=== PATIENT | female | born 1995 | race Caucasian/White ===

== ENCOUNTER 2018-02-27 13:27 | Emergency (ER) | payer OTHER ==
[2018-02-27 13:55] VITALS: BP 136/85
--- NOTE | 2018-02-27 14:23 | ED ---
Neurological HPI - HPI Summary HPI Summary: 23 yr old with complaint of intermittent left leg numbness the past couple of days. The patient states that she bent over and felt some pain in low back a couple days ago, went to the [facility] and was told she had knee sprain. She disagrees, and does not feel she has a sprain knee though she has been wearing her knee immobilizer [facility] gave her. She describes glove/stocking type numbness from tip of toes to the upper thigh that comes and goes the past couple of days. She has had left facial numbness in the past. She has been diagnosed with Lyme Disease in the last year. She denies change in vision, speech, hearing swallowing, denies focal weakness. No bowel or bladder incontinence. - History of Current Complaint Chief Complaint: UCLowerExtremity Stated Complaint: LOWER BACK/LEFT LEG PAIN Time Seen by Provider: 02/27/18 14:04 Hx Last Menstrual Period: 02/01/18 Pain Intensity: 5 - Allergy/Home Medications Allergies/Adverse Reactions: Allergies Allergy/AdvReac Type Severity Reaction Status Date / Time ciprofloxacin [From Cipro] Allergy Intermediate Hives Verified 02/27/18 13:55 morphine AdvReac Intermediate Increases Verified 02/27/18 13:55 B/P Home Medications: Home Medications NK [No Home Medications Reported] 02/27/18 [History Confirmed 02/27/18] PMH/Surg Hx/FS Hx/Imm Hx - Surgical History Surgery Procedure, Year, and Place: 2 c-sections, laproscopic surgery for endometriosis Infectious Disease History: No Infectious Disease History: Denies: Traveled Outside the [place] in Last 30 Days - Social History Alcohol Use: None Substance Use Type: Reports: None Smoking Status (MU): Light Every Day Tobacco Smoker Review of Systems Positive: Other - back pain Positive: Numbness All Other Systems Reviewed And Are Negative: Yes Physical Exam Triage Information Reviewed: Yes Vital Signs On Initial Exam: Initial Vitals Temp Pulse Resp BP Pulse Ox 99.0 F 100 18 136/85 100 02/27/18 13:47 02/27/18 13:47 02/27/18 13:47 02/27/18 13:47 02/27/18 13:47 Vital Signs Reviewed: Yes Appearance: Positive: Well-Appearing, No Pain Distress Skin: Positive: Warm, Skin Color Reflects Adequate Perfusion Eyes: Positive: EOMI Neck: Positive: Nontender Respiratory/Lung Sounds: Positive: Clear to Auscultation, Breath Sounds Present Cardiovascular: Positive: RRR. Negative: Murmur Abdomen Description: Positive: Nontender Musculoskeletal: Positive: Strength/ROM Intact, Other - No CTLS spine tenderness on palpation Neurological: Positive: Sensory/Motor Intact - she reports numbness of the entire left leg., Alert, Oriented to Person Place, Time, CN Intact II-III Psychiatric: Positive: Normal - Jocelin Coma Scale Best Eye Response: 4 - Spontaneous Best Motor Response: 6 - Obeys Commands Best Verbal Response: 5 - Oriented Coma Scale Total: 15 Diagnostics - Vital Signs Vital Signs Temp Pulse Resp BP Pulse Ox 02/27/18 13:47 99.0 F 100 18 136/85 100 - Laboratory Lab Statement: Any lab studies that have been ordered have been reviewed, and results considered in the medical decision making process. 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 She refused transfer to the ER by ambulance and signed out AMA. - Diagnoses Provider Diagnoses: Numbness in left leg Discharge - Sign-Out/Discharge Documenting (check all that apply): Discharge/Admit/Transfer - Discharge Plan Condition: Good Disposition: AGAINST MEDICAL ADVICE Referrals: Latosha GONSALES,Jorge Dominguez [Primary Care Provider] - - Billing Disposition and Condition Condition: GOOD Disposition: AMA
== END 2018-02-27 14:25 | disposition left against medical advice (07) ==
LOC: UCCORT 13:27
DX: R20.0 Anesthesia of skin (principal); Z88.1 Allergy status to other antibiotic agents; Z88.5 Allergy status to narcotic agent; F17.210 Nicotine dependence, cigarettes, uncomplicated
CPT/HCPCS: 99212; G0463

== ENCOUNTER 2019-02-01 19:43 | Emergency (ER) | payer MEDICAID, OTHER ==
--- OUTSIDE RECORDS SUMMARY | 2019-02-01 19:59 | XMS REPORT | Continuity of Care Document ---
:1995 External Reference #:[id number] Author Name Michelle Hernandez M.D. Address [address] [place] [address] Care Team Providers Name Role Phone Hardy Vega MD Care Team Information [place] Machine Operator Unavailable Jorge Reina PA Primary Care Physician Unavailable Payers Date Identification Numbers Payment Provider Subscriber Policy Number: [id number] [employer] Rosa Renee PayID: [id number] [address] [place] [address] Advance Directives Description No Information Available Problems Date Description Provider Status Onset: 01/06/2019 Retention of urine Michelle Hernandez M.D. Active Onset: 01/06/2019 Cystitis Michelle Hernandez M.D. 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 Tobacco Use Start: Unknown End: Quit Unknown Tobacco Use Start: Unknown Never Smoked Cigars Tobacco Use Start: Unknown Never Smoked A Pipe Smokeless Tobacco Never Used Smokeless Tobacco ETOH Use Denies alcohol use Recreational Drug Use Denies Drug Use Tobacco Use Start: Unknown Light tobacco smoker (10 or fewer cigarettes/day) Smoking Status Reviewed: 01/14/19 Light tobacco smoker (10 or fewer cigarettes/day) Allergies, Adverse Reactions, Alerts Date Description Reaction Status Severity Comments 03/20/2018 Morphine Active 03/20/2018 Cipro Active Medications Medication Date Status Form Strength Qnty SIG Indications Ordering Provider Tamsulosin 01/27 Active Capsules 0.4mg 21cap 1 by mouth every Mary, s day Dagmar Martinez Pyridium 01/09 Active Tablets 200mg 30tab by mouth three Mary, s times a day as Michelle, needed M.Eva Elmiron 01/06 Active Capsules 100mg 120ca 1 tab by mouth Mary ps three times a Gabrielamoud, day M.DPaola Uribel 11/24 Active Capsules 118mg 20cap 1 tab by mouth Mary, s up to four times Mahmoud, a day M.DPaola Mapap Active Tablets 500mg Take Two Tablets Unknown /0000 By Mouth Every 8 Hours While Symptoms Last Maximum Da Effexor XR Active Caps ER 150mg 1 by mouth every Unknown /0000 24HR day Gabapentin Active Tablets 600mg take one tablet Unknown /0000 by mouth three times a day Depo-Car Sales Consultant Active Suspension 150mg/ml inject 150mg Unknown a /0000 intramuscularly every 3 months Sulfamethox 01/06 Hx Tablets 800-160mg 1tabs 1 by mouth once Mary, azole/Trim given in office tj Martinez DS - for procedure Dagmar 01/07 Gabapentin Hx Capsules 400mg Take One Capsule Unknown /0000 By Mouth Three - Times A Day 11/24 Naproxen Hx Tablets 500mg Take 1 Tablet By Unknown /0000 Mouth Twice A - Day as Needed 11/24 Okay To Take With Acetami Duloxetine Hx Caps DR 30mg Take One Capsule Unknown HCL /0000 Part By Mouth Every - Day In The 11/24 Prednisone Hx Tablets 50mg Take One Tablet Unknown /0000 By Mouth Every - Day For 5 Days 03/20 Immunizations Description No Information Available Vital Signs Date Vital Result Comment 01/26/2019 10:53am BP Systolic 133 mmHg BP Diastolic 79 mmHg Body Temperature 98.7 F Heart Rate 99 /min Respiratory Rate 16 /min Height 62 inches 5'2" Weight 178.12 lb BMI (Body Mass Index) 32.6 kg/m2 BSA (Body Surface Area) 1.82 m2 [place] body weight in kilograms 50 kg O2 % BldC Oximetry 99 % Ra Pain Level 4 bladder area, back 01/08/2019 10:23am BP Systolic 115 mmHg BP Diastolic 73 mmHg Body Temperature 99.0 F Heart Rate 89 /min Respiratory Rate 18 /min Height 62 inches 5'2" Weight 178.00 lb BMI (Body Mass Index) 32.6 kg/m2 BSA (Body Surface Area) 1.82 m2 [place] body weight in kilograms 50 kg O2 % BldC Oximetry 98 % 01/06/2019 10:54am BP Systolic 125 mmHg BP Diastolic 82 mmHg Body Temperature 99.2 F Heart Rate 95 /min Respiratory Rate 16 /min O2 % BldC Oximetry 98 % Pain Level 5 Pain on urination 11/24/2018 1:46pm BP Systolic 103 mmHg BP Diastolic 72 mmHg Body Temperature 98.3 F Heart Rate 80 /min Respiratory Rate 16 /min O2 % BldC Oximetry 98 % Pain Level 8 only when urinating 04/25/2018 11:03am BP Systolic 104 mmHg BP Diastolic 71 mmHg Body Temperature 97.5 F Heart Rate 93 /min Respiratory Rate 16 /min Height 63.5 inches 5'3.50" Weight 186.00 lb BMI (Body Mass Index) 32.4 kg/m2 BSA (Body Surface Area) 1.89 m2 [place] body weight in kilograms 53 kg O2 % BldC Oximetry 96 % room air Pain Level 7 03/20/2018 1:40pm BP Systolic 106 mmHg BP Diastolic 73 mmHg Body Temperature 98.8 F Respiratory Rate 98 /min Height 62 inches 5'2" Weight 178.00 lb BMI (Body Mass Index) 32.6 kg/m2 BSA (Body Surface Area) 1.82 m2 [place] body weight in kilograms 50 kg Results Test Date Facility Test Result H/L Range Note Urine Dipstick 01/27/2019 [facility] Color yellow Yellow Ua Clarity clear Clear Ua Leuko negative Negative Ua Nitrite negative Negative Ua Urobilinogen 0.2 0.2 - 1.0 E.U./dL Ua Protein negative Negative Ua PH 7.0 6.5-7.5 Ua Blood 25 High Negative Ua Specific [place] 1.015 1.010-1.030 Ua Ketones negative Negative Ua Bilirubin negative Negative Ua Glucose negative Negative Urine Dipstick 01/06/2019 [facility] Inhouse Ua Color Yellow Yellow Ua Clarity Clear Clear Ua Leuko Negative Negative Ua Nitrite Negative Negative Ua Urobilinogen 0.2 0.2 - 1.0 E.U./dL Ua Protein Negative Negative Ua PH 6.5 6.5-7.5 Ua Blood 200 High Negative Ua Specific [place] 1.015 1.010-1.030 Ua Ketones Negative Negative Ua Bilirubin Negative Negative Ua Glucose Negative Negative Urine Dipstick 11/24/2018 [facility] Ua Color Yellow Yellow Ua Clarity Clear Clear Ua Leuko Negative Negative Ua Nitrite Negative Negative Ua Urobilinogen 0.2 0.2 - 1.0 E.U./dL Ua Protein Negative Negative Ua PH 6.5 6.5-7.5 Ua Blood Negative Negative Ua Specific [place] 1.015 1.010-1.030 Ua Ketones Negative Negative Ua Bilirubin Negative Negative Ua Glucose Negative Negative Procedures Date Code Description Status 01/08/2019 37466 voiding pressure study vp marketing intra abdominal voiding pressure Completed ap 01/08/2019 82960 emg studies of urethral sphincter, other than needle, any Completed tech 01/08/2019 20473 Cystometrogram complex w/ voiding and urethral pressure Completed studies 01/08/2019 51817 Bladder Catheterization Completed 01/06/2019 54050 Cystoscopy Completed 01/06/2019 05049 Measurement Post Voiding Residual Urine By Completed Ultrasound,Non-Imaging 11/24/2018 52488 Measurement Post Voiding Residual Urine By Completed Ultrasound,Non-Imaging Encounters Type Date Location Provider Dx Diagnosis Office Visit 01/27/2019 Urology Phill Peraza, R39.14 Feeling of incomplete 11:00a NETTA bladder emptying Office Visit 01/06/2019 Urology Michelle Hernandez, N30.80 Other cystitis 11:00a M.D. without hematuria R33.8 Other retention of urine Z71.6 Tobacco abuse counseling Office Visit 11/24/2018 1:45p Urology Phill Peraza PA R35.1 Nocturia N30.80 Other cystitis without hematuria R30.0 Dysuria R39.14 Feeling of incomplete bladder emptying Office Visit 04/25/2018 11:00a Orthopaedic Office Poncho Quevedo S60.211A Contusion of E., DO right wrist, initial encounter S60.221A Contusion of right hand, initial encounter Office Visit 03/20/2018 1:15p Orthopaedic Office Lora Kohler M25.562 Pain in S., RPAC left knee Plan of Treatment Future Appointment(s):02/11/2019 10:30 am - Phill Peraza, PA at [id number] - Phill Peraza, PAR39.14 Feeling of incomplete bladder emptyingComments:We reviewed her urodynamic study. Perhaps she doesn't allow herself to fill enough and I suggested she trials occasionally going a little bit longer delay the first urge to void. I did provide her a short course of tamsulosin 0.4 mg. Review potential side effects and she'll return in 3 weeks with aflow and a postvoid residual.
--- OUTSIDE RECORDS SUMMARY | 2019-02-01 19:59 | XMS REPORT | Continuity of Care Document ---
:1995 External Reference #:[id number] Author Name Michelle Hernandez M.D. 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 Work Status Currently Working 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 Tobacco Use Start: Unknown End: Quit Unknown Tobacco Use Start: Unknown Never Smoked Cigars Tobacco Use Start: Unknown Never Smoked A Pipe Smokeless Tobacco Never Used Smokeless Tobacco ETOH Use Denies alcohol use Recreational Drug Use Denies Drug Use Tobacco Use Start: Unknown Light tobacco smoker (10 or fewer cigarettes/day) Smoking Status Reviewed: 01/05/19 Light tobacco smoker (10 or fewer cigarettes/day) Allergies, Adverse Reactions, Alerts Date Description Reaction Status Severity Comments 03/20/2018 Morphine Active 03/20/2018 Cipro Active Medications Medication Date Status Form Strength Qnty SIG Indications Ordering Provider Sulfamethoxaz 01/06/ Active Tablets 800-160mg 1tabs 1 by mouth Maryrona wilburn/Trimethop 2018 once given deepali Martinez in office M.D. for procedure Uribel 11/24/ Active Capsules 118mg 6caps 1 tab by Mary, 2018 mouth up to Mahmoud, four times M.D. a day Mapap / Active Tablets 500mg Take Two Unknown 0000 Tablets By Mouth Every 8 Hours While Symptoms Last Maximum Da Effexor XR / Active Caps ER 150mg 1 by mouth Unknown 0000 24HR every day Gabapentin / Active Tablets 600mg take one Unknown 0000 tablet by mouth three times a day Gabapentin / Hx Capsules 400mg Take One Unknown 0000 - Capsule By 11/24/ Mouth Three 2019 Times A Day Naproxen / Hx Tablets 500mg Take 1 Unknown 0000 - Tablet By 11/24/ Mouth Twice 2019 A Day as Needed Okay To Take With Acetami Duloxetine / Hx Caps DR 30mg Take One Unknown HCL 0000 - Part Capsule By 11/24/ Mouth Every 2018 Day In The Morning Prednisone / Hx Tablets 50mg Take One Unknown 0000 - Tablet By 03/20/ Mouth Every 2017 Day For 5 Days Immunizations Description No Information Available Vital Signs Date Vital Result Comment 01/06/2019 10:54am BP Systolic 125 mmHg BP [...] kg/m2 BSA (Body Surface Area) 1.89 m2 [place] body weight in kilograms 53 kg O2 % BldC Oximetry 96 % room air Pain Level 7 03/20/2018 1:40pm BP Systolic 106 mmHg BP Diastolic 73 mmHg Body Temperature 98.8 F Respiratory Rate 98 /min Height 62 inches 5'2" Weight 178.00 lb BMI (Body Mass Index) 32.6 kg/m2 BSA (Body Surface Area) 1.82 m2 [place] body weight in kilograms 50 kg Results Test Date Facility Test Result H/L Range Note Urine Dipstick 01/06/2019 [facility] Ua Color Yellow Yellow Ua Clarity Clear Clear Ua Leuko Negative Negative Ua Nitrite Negative Negative Ua Urobilinogen 0.2 0.2 - 1.0 E.U./dL Ua Protein Negative Negative Ua PH 6.5 6.5-7.5 Ua Blood 200 High Negative Ua Specific [place] 1.015 1.010-1.030 Ua Ketones Negative Negative Ua Bilirubin Negative Negative Ua Glucose Negative Negative Urine Dipstick 11/24/2018 [facility] Inhouse Ua Color Yellow Yellow Ua Clarity Clear Clear Ua Leuko Negative Negative Ua Nitrite Negative Negative Ua Urobilinogen 0.2 0.2 - 1.0 E.U./dL Ua Protein Negative Negative Ua PH 6.5 6.5-7.5 Ua Blood Negative Negative Ua Specific [place] 1.015 1.010-1.030 Ua Ketones Negative Negative Ua Bilirubin Negative Negative Ua Glucose Negative Negative Procedures Date Code Description Status 11/24/2018 82007 Measurement Post Voiding Residual Urine By Completed Ultrasound,Non-Imaging Encounters Type Date Location Provider Dx Diagnosis Office Visit 11/24/2018 1:45p Urology Phill Peraza [...] S., RPAC left knee Plan of Treatment 01/06/2019 - Michelle Hernandez M.D.N30.80 Other cystitis without hematuriaComments:I will have patient restart Elmiron to see if her symptoms will be controlled. We'll check LFTs now. Discussed behavioral modifications and dietary changes.R33.8 Other retention of urineNew Labs:Comprehensive Metabolic Panel, Ordered: 01/06/19Comments:Patient is scheduled for urodynamics for further evaluation she's continue with CIC 3 times a day
[2019-02-01 20:10] VITALS: BP 126/85
--- NOTE | 2019-02-01 20:12 | UC ---
Upper Extremity HPI - HPI Summary HPI Summary: patient dropped 5 gallon jug onto her right wrist. pain on the distal ulna and shoots up the arm - History of Current Complaint Stated Complaint: RIGHT WRIST INJURY(WC) Time Seen by Provider: 02/01/19 20:04 Hx Obtained From: Patient Hx Last Menstrual Period: 02/01/18 Onset/Duration: Sudden Onset, Lasting Hours Severity Initially: Moderate Severity Currently: Moderate Location Of Pain: Is Discrete @ Character: Aching, Throbbing Aggravating Factor(s): Movement Alleviating Factor(s): Nothing Associated Signs And Symptoms: Positive: Swelling, Weakness, Numbness/Tingling Related History: Dominant Hand Right - Allergies/Home Medications Allergies/Adverse Reactions: Allergies Allergy/AdvReac Type Severity Reaction Status Date / Time ciprofloxacin [From Cipro] Allergy Intermediate Hives Verified 02/01/19 19:58 morphine AdvReac Intermediate Increases Verified 02/01/19 19:58 B/P Home Medications: Home Medications Acetaminophen TAB* [Tylenol TAB*] 650 mg PO Q4H PRN 02/01/19 [History Confirmed 02/01/19] Gabapentin CAP(*) [Neurontin 400 mg CAP(*)] 800 mg PO TID 02/01/19 [History Confirmed 02/01/19] Pentosan Polysulfate Sod (NF) [Elmiron (NF)] 100 mg PO DAILY 02/01/19 [History Confirmed 02/01/19] medroxyPROGESTERone ACETATE* [DEPO-Provera] 150 mg IM 02/01/19 [History] PMH/Surg Hx/FS Hx/Imm Hx Previously Healthy: Yes - Surgical History Surgical History: Yes Surgery Procedure, Year, and Place: 2 c-sections, laproscopic surgery for endometriosis - Family History Known Family History: Negative: Cardiac Disease, Hypertension - Social History Alcohol Use: None Substance Use Type: None Smoking Status (MU): Light Every Day Tobacco Smoker Review of Systems All Other Systems Reviewed And Are Negative: Yes Constitutional: Positive: Negative Skin: Positive: Negative Eyes: Positive: Negative ENT: Positive: Negative Respiratory: Positive: Negative Cardiovascular: Positive: Negative Gastrointestinal: Positive: Negative Genitourinary: Positive: Negative Motor: Positive: Negative Neurovascular: Positive: Negative Musculoskeletal: Positive: Arthralgia, Decreased ROM, Edema, Myalgia Neurological: Positive: Negative Psychological: Positive: Negative Is Patient Immunocompromised?: No Physical Exam Triage Information Reviewed: Yes Appearance: Well-Appearing, Well-Nourished, Pain Distress Vital Signs Reviewed: Yes Eye Exam: Normal ENT Exam: Normal Dental Exam: Normal Neck exam: Normal Respiratory Exam: Normal Respiratory: Positive: Chest non-tender, Lungs clear, Normal breath sounds Cardiovascular Exam: Normal Cardiovascular: Positive: RRR, No Murmur, Pulses Normal Abdominal Exam: Normal Abdomen Description: Positive: Nontender, No Organomegaly, Soft Bowel Sounds: Positive: Present Musculoskeletal: Positive: Strength Limited @ - 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 - Differential Dx/Diagnosis Differential Diagnosis/HQI/PQRI: Contusion, Fracture (Closed), Strain, Sprain Provider Diagnosis: Contusion of forearm, right Discharge - Sign-Out/Discharge Documenting (check all that apply): Patient Departure All imaging exams completed and their final reports reviewed: No Studies - Discharge Plan Condition: Stable Disposition: HOME Patient Education Materials: Contusion in Adults (ED) Referrals: Latosha GONSALES,Jorge Dominguez [Primary Care Provider] - Luis Patel MD [Medical Doctor] - Additional Instructions: 1. rest 2. Ice 30 min at a time 3. use the romelia wrap to minimize swelling 4. use the brace for support 5. There is no obvious fracture on your xray, the radiologist will read it in the morning and we will call if they find anything that we have missed. 6. If not improving in the next week, follow up with orthopedics, Dr Patel. 7. take ibuprofen 400 mg every 4 hours for pain and swelling - Billing Disposition and Condition Condition: STABLE Disposition: Home
--- NOTE | 2019-02-02 15:11 | UC ---
- Progress Note Progress Note: Radiologist reading of the right wrist x-ray from February 01, 2019 is read as no fracture. Provider interpretation from the same date is also no fracture therefore there is no discrepancy. Course/Dx - Diagnoses Provider Diagnoses: Contusion of forearm, right Discharge - Sign-Out/Discharge Documenting (check all that apply): Patient Departure All imaging exams completed and their final reports reviewed: Yes - Discharge Plan Condition: Stable Disposition: HOME Patient Education Materials: Contusion in Adults (ED) Referrals: Luis Patel MD [Medical Doctor] - Latosha GONSALES,Jorge Dominguez [Primary Care Provider] - Additional Instructions: 1. rest 2. Ice 30 min at a time 3. use the romelia wrap to minimize swelling 4. use the brace for support 5. There is no obvious fracture on your xray, the radiologist will read it in the morning and we will call if they find anything that we have missed. 6. If not improving in the next week, follow up with orthopedics, Dr Patel. 7. take ibuprofen 400 mg every 4 hours for pain and swelling - Billing Disposition and Condition Condition: STABLE Disposition: Home
== END 2019-02-01 20:32 | disposition home or self-care (01) ==
LOC: UCCORT 19:43
DX: S50.11XA Contusion of right forearm, initial encounter (principal); F17.200 Nicotine dependence, unspecified, uncomplicated; Z88.1 Allergy status to other antibiotic agents; Z88.5 Allergy status to narcotic agent; W20.8XXA Other cause of strike by thrown, projected or falling object, initial encounter; Y92.9 Unspecified place or not applicable
CPT/HCPCS: 99213; G0463

== ENCOUNTER 2019-04-11 09:35 | Emergency (ER) | payer OTHER ==
--- NOTE | 2019-04-11 09:54 | UC ---
Hand/Wrist HPI - HPI Summary HPI Summary: 24-year-old female who hit the dorsum of her right hand on a chair yesterday. She thought she just sprained it but she states today she is unable to straighten her fingers. - History Of Current Complaint Stated Complaint: RT HAND INJURY Time Seen by Provider: 04/11/19 09:50 Hx Obtained From: Patient Hx Last Menstrual Period: 02/01/18 ?: No Onset/Duration: Sudden Onset Severity Initially: Mild Severity Currently: Mild Character Of Pain: Dull, Aching Aggravating Factor(s): Movement, Other - Patient states she is unable to straighten her fingers. Alleviating Factor(s): Nothing Associated Signs And Symptoms: Positive: Swelling - Minimal swelling present, Bruising - Minimal bruising present - Allergies/Home Medications Allergies/Adverse Reactions: Allergies Allergy/AdvReac Type Severity Reaction Status Date / Time ciprofloxacin [From Cipro] Allergy Intermediate Hives Verified 04/11/19 09:55 morphine AdvReac Intermediate Increases Verified 04/11/19 09:55 B/P Home Medications: Home Medications Ibuprofen TAB* [Advil TAB*] 400 mg PO Q6H PRN 04/11/19 [History Confirmed ] PMH/Surg Hx/FS Hx/Imm Hx Previously Healthy: Yes Respiratory History: Asthma GI/ History: Ulcer - Surgical History Surgical History: Yes Surgery Procedure, Year, and Place: 2 c-sections, laproscopic surgery for endometriosis - Family History Known Family History: Negative: Cardiac Disease, Hypertension - Social History Alcohol Use: None Substance Use Type: None Smoking Status (MU): Light Every Day Tobacco Smoker Amount Used/How Often: !/2 PPD Review of Systems All Other Systems Reviewed And Are Negative: Yes Skin: Positive: Bruising - Minimal bruising present dorsum of right hand. Physical Exam Triage Information Reviewed: Yes Appearance: Well-Appearing, No Pain Distress, Well-Nourished Vital Signs Reviewed: Yes Musculoskeletal: Positive: Strength Intact, ROM Intact, Other: - Minimal swelling and bruising over the dorsum, good finger strength of flexion extension against resistance, navicular is nontender, and wrist nontender good elbow stability. Neurological Exam: Normal Neurological: Positive: Alert, Muscle Tone Normal Psychological Exam: Normal Skin Exam: Normal Hand/Wrist Course/Dx - Course Course Of Treatment: Right hand x-ray:FINDINGS: BONE DENSITY: Normal. BONES: There is no displaced fracture. JOINTS: There is no arthropathy. ALIGNMENT: There is no dislocation. SOFT TISSUES: Unremarkable. OTHER FINDINGS: None. IMPRESSION: NO ACUTE OSSEOUS INJURY. IF SYMPTOMS PERSIST, RECOMMEND REPEAT IMAGING. The patient refused an Everardo bandage to the area. - Differential Dx/Diagnosis Provider Diagnosis: Hand sprain Discharge - Sign-Out/Discharge Documenting (check all that apply): Patient Departure All imaging exams completed and their final reports reviewed: Yes - Discharge Plan Condition: Fair Disposition: HOME Patient Education Materials: Hand Sprain (ED) Referrals: Austin Sanchez MD [Medical Doctor] - Jorge Reina PA [Primary Care Provider] - Additional Instructions: Apply ice and elevate as much as possible throughout the day. May take Tylenol or Motrin for pain. Follow-up with orthopedist if no improvement in 3 or 4 days. - Billing Disposition and Condition Condition: FAIR Disposition: Home
[2019-04-11 09:55] VITALS: BP 114/65
== END 2019-04-11 10:28 | disposition home or self-care (01) ==
LOC: UCCORT 09:35
DX: S63.91XA Sprain of unspecified part of right wrist and hand, initial encounter (principal); W22.03XA Walked into furniture, initial encounter; Y92.9 Unspecified place or not applicable; Z88.5 Allergy status to narcotic agent; F17.210 Nicotine dependence, cigarettes, uncomplicated
CPT/HCPCS: 99211; G0463

== ENCOUNTER 2019-07-02 09:02 | Emergency (ER) | payer OTHER ==
[2019-07-02 09:33] VITALS: BP 118/70
--- NOTE | 2019-07-02 10:24 | UC ---
Throat Pain/Nasal Justin HPI - HPI Summary HPI Summary: 24 year old with 3 day history of sore throat, fever, malaise. She has been using ibuprofen and acetaminophen, having some vomiting which she believes is related to the ibuprofen use. Stools are loose, and she has dysuria. could not given UA today, has a hx of interstitial cystitis. - History of Current Complaint Chief Complaint: UCGeneralIllness Stated Complaint: SORE THROAT Time Seen by Provider: 07/02/19 10:16 Hx Obtained From: Patient Hx Last Menstrual Period: 02/01/18 Onset/Duration: Sudden Onset, Lasting Days - 3 Severity: Moderate Pain Intensity: 8 Cough: Nonproductive Associated Signs & Symptoms: Positive: Dysphagia, Hoarseness, Fever, Vomiting - Epiglottits Risk Factors Epiglottis Risk Factors: Negative - Allergies/Home Medications Allergies/Adverse Reactions: Allergies Allergy/AdvReac Type Severity Reaction Status Date / Time ciprofloxacin [From Cipro] Allergy Intermediate Hives Verified 07/02/19 09:24 morphine AdvReac Intermediate Increases Verified 07/02/19 09:24 B/P PMH/Surg Hx/FS Hx/Imm Hx Previously Healthy: Yes - Surgical History Surgical History: Yes Surgery Procedure, Year, and Place: 2 c-sections, laproscopic surgery for endometriosis - Family History Known Family History: Negative: Cardiac Disease, Hypertension - Social History 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 Alcohol Use: None Substance Use Type: None Smoking Status (MU): Former Smoker Type: Cigarettes Amount Used/How Often: !/2 PPD Length of Time of Smoking/Using Tobacco: since age 16 Have You Smoked in the Last Year: Yes Review of Systems All Other Systems Reviewed And Are Negative: Yes Constitutional: Positive: Fever, Fatigue Skin: Positive: Negative ENT: Positive: Sore Throat Respiratory: Positive: Cough Gastrointestinal: Positive: Vomiting, Diarrhea Genitourinary: Positive: Dysuria, Frequency Motor: Positive: Negative Neurovascular: Positive: Negative Musculoskeletal: Positive: Negative Neurological: Positive: Headache Psychological: Positive: Negative Is Patient Immunocompromised?: No Physical Exam Triage Information Reviewed: Yes Appearance: Ill-Appearing, Pain Distress - moderate., Other: - mucous membranes moist, does not look dehydrated. Vital Signs: Initial Vital Signs Temp 98.2 F 07/02/19 09:30 Pulse 92 07/02/19 09:30 Resp 16 07/02/19 09:30 BP 118/70 07/02/19 09:30 Pulse Ox 100 07/02/19 09:30 Eyes: Positive: Conjunctiva Clear ENT: Positive: Pharyngeal erythema, Tonsillar swelling - moderate, Tonsillar exudate Dental Exam: Normal Neck: Positive: Supple, Nontender, Enlarged Nodes @ - tonsillar, bilateral Respiratory: Positive: Lungs clear, Normal breath sounds Cardiovascular: Positive: RRR, No Murmur Abdomen Description: Positive: Nontender, No Organomegaly, Soft Musculoskeletal Exam: Normal Neurological Exam: Normal Psychological Exam: Normal Skin Exam: Normal Diagnostics - Laboratory Lab Results: Rapid strep positive. Throat Pain/Nasal Course/Dx - Course Course Of Treatment: Amoxicillin for positive strep, continue ibuprofen and acetaminophen for pain control - Differential Dx/Diagnosis Differential Diagnosis/HQI/PQRI: Laryngitis, Pharyngitis, Tonsillitis Provider Diagnosis: Strep tonsillitis Discharge ED - Sign-Out/Discharge Documenting (check all that apply): Patient Departure All imaging exams completed and their final reports reviewed: No Studies - Discharge Plan Condition: Stable Disposition: HOME Prescriptions: Amoxicillin 875 mg PO BID #20 tablet Patient Education Materials: Strep Throat (ED) Forms: *Work Release Referrals: Jorge Reina PA [Primary Care Provider] - Additional Instructions: Begin treatment with amoxicillin for strep. Off work tomorrow due to infectious risk. Continue use of acetaminophen and ibuprofen for control of pain. Ensure high fluid intake, and follow up if you have persistent vomiting or fever. - Billing Disposition and Condition Condition: STABLE Disposition: Home
== END 2019-07-02 10:43 | disposition home or self-care (01) ==
LOC: UCCORT 09:02
DX: J02.0 Streptococcal pharyngitis (principal); N30.10 Interstitial cystitis (chronic) without hematuria; Z87.891 Personal history of nicotine dependence
CPT/HCPCS: 87651; 99212; G0463

== ENCOUNTER 2019-08-05 16:07 | Emergency (ER) | payer OTHER ==
--- OUTSIDE RECORDS SUMMARY | 2019-08-05 16:14 | XMS REPORT | Continuity of Care Document ---
:1995 Demographics Phone Unavailable Preferred Language Unknown Marital Status Unknown Temple Affiliation Unknown Race Unknown Ethnic Group Unknown Author Organization [facility] Allergies and Intolerances No Allergy Data in the System Medications No Known Medications Medications At Time Of Discharge No data in the system Problems No Data in the system Procedures No data in the system Results Microbiology Results w Susceptibilities Order: CULTURE GROUP A STREP Specimen Source: Swab Body Site: Entire throat (surface region of neck )Cultural Observations:Streptococcus pyogenes (Group A) was NOT [id number] Lab Footnotes:[facility] - [id number] - [address] [place] [address] HENNA JENNIFEROMD1 Social History Code Code System Social History Description Dates Observed Observation [id number] SNOMED CT Current Smoking Unknown if ever Status smoked UNK AdministrativeGender Sex Assigned At Unknown Vital Signs No data in the system Goals Section No data in the system Health Concerns No data in the systemEncounter Diagnosis Date Code Code System Diagnosis Status J02.0 ICD10 STREPTOCOCCAL PHARYNGITIS Active Advance Directives No Data in the System Encounters Encounter Diagnosis Location Date STREPTOCOCCAL PHARYNGITIS [facility] 07/20/2019 Family History Family history not obtained Functional Status No data in the system Immunizations No data in the system Medical Equipment No data in the system Mental Status No data in the system Assessment and Plan Assessments No data in the systemPlan Of Treatment No data in the systemPending Tests No data in the system Hospital Discharge Instructions No data in the system Reason for Visit No data in the system
--- OUTSIDE RECORDS SUMMARY | 2019-08-05 16:14 | XMS REPORT | Continuity of Care Document ---
:1995 External Reference #:[id number] Author Name Lius Patel MD (transmitted by agent of provider Baldemar Carbajal) Address [address] [place] [id number] Care Team Providers Name Role Phone Jorge Reina PA - Physician Care Team Information Biology Professor [phone] Call Center Associate Problems Description No Information Available Social History Type Date Description Comments Sex Unknown ETOH Use Rarely consumes alcohol Tobacco Use Start: Unknown End: Patient is a former smoker Unknown Recreational Drug Use Never Used Drugs Smoking Status Reviewed: 07/08/19 Patient is a former smoker Exercise Type/Frequency Exercises sporadically Allergies, Adverse Reactions, Alerts Active Allergies Reaction Severity Comments Date Cipro 06/03/2018 Morphine 06/03/2018 Medications Active Medications SIG Qnty Indications Ordering Date Provider Albuterol Sulfate one puff every 6 8.500gm Luis Patel, 07/16/2019 HFA hours as needed 108(90Base) mcg/Act Aerosol Zonisamide take 1 cap po at hs 120caps G43.109 Prateek Christy 07/08/2019 25mg for 1 wk, then 2 Dagmar Cantu Capsules caps po at hs for 1 wk, then 3 caps po at hs for 1 wk, then 4 caps po at hs Butalbital/Acetamino take one tab by 30tabs G43.109 Prateek Christy 07/08/2019 phen/Caffeine mouth daily, as Dagmar Cantu needed for 50-325-40mg Tablets migraines. Acetaminophen Extra 2 tabs by mouth Unknown Strength every 8 hours as 500mg needed for pain or Tablets fever Depo-Provera 150mg intramuscular Unknown 150mg/ml every 3 months Suspension History Medications Butalbital/Acetaminophen/Caffeine Take one tab 30tabs Prateek Gunter. 2018 - 50-325-40mg Tablets po daily, as Alondra, 07/08/2019 needed for M.D. migraines. Zonisamide 25mg take 1 cap po 120caps Prateek Gunter. 2018 - Capsules at hs for 1 , 07/13/2019 wk, then 2 M.D. caps po at hs for 1 wk, then 3 caps po at hs for 1 wk, then 4 caps po at hs Butalbital/Acetaminophen/Caffeine Take one tab 30tabs Prateek S. 2018 - 50-325-40mg Tablets po daily, as Alondra, 07/13/2019 needed for M.D. migraines. Topiramate 25mg 1 qhs for 1 120tabs G43 Prateek Jani. 04/14 - Tablets week then 2 .10 [place], 07/07/2019 qhs for 1 9 M.D. week then 3 qhs for 1 week then 4 qhs Rizatriptan Benzoate 1 by mouth as 14tabs G43 Prateek Gunter. 04/14/2019 - 10mg Tablets needed .10 [place], 07/15/2019 migraine, march 05 M.D. repeat once, max 2/d, max 2 days/wk Immunizations Description No Information Available Vital Signs Date Vital Result Comment 07/16/2019 8:59am Height 62 inches 5'2" Weight 180.00 lb Heart Rate 64 /min BP Systolic Sitting 124 mmHg BP Diastolic Sitting 72 mmHg Body Temperature 98.1 F Pain Level 3 O2 % BldC Oximetry 98 % BMI (Body Mass Index) 32.9 kg/m2 07/08/2019 3:11pm Height 62 inches 5'2" Weight 176.00 lb Heart Rate 84 /min BP Systolic 150 mmHg BP Diastolic 84 mmHg BMI (Body Mass Index) 32.2 kg/m2 Results Description No Information Available Procedures Description No Information Available Medical Devices Description No Information Available Encounters Type Date Location Provider Dx Diagnosis Office Visit 07/16/2019 [facility] G[facility] [id number] Pain in right hand 9:00a [facility] [place] Office Visit 04/14/2019 [facility] Prateek Christy G43.109 Migraine with 9:00a [facility] Cantu M.D. aura, not intractable, w/o status migrainosus Assessments Date Code Description Provider 07/16/2019 M79.641 Pain in right hand Luis Patel MD 07/08/2019 G62.9 Polyneuropathy, unspecified Eduard Zuniga NP 07/08/2019 G43.109 Migraine with aura, not intractable, Eduard Zuniga NP without status migraino 04/14/2019 G43.109 Migraine with aura, not intractable, Prateek Cantu M.D. without status migraino Plan of Treatment Future Appointment(s):08/06/2019 3:30 pm - Eduard Zuniga NP at [facility]07/16/2019 - Luis Patel, MDM79.641 Pain in right handFollow up:Follow up: [place] after hand MRI Functional Status Description No Information Available Mental Status Description No Information Available Referrals Description No Information Available
[2019-08-05 16:26] VITALS: BP 145/83
--- NOTE | 2019-08-05 17:06 | UC ---
Skin Complaint HPI - HPI Summary HPI Summary: 24 yo female was seen by here PCP lst week for a superficial skin infection on the dorsum or her right foot She was called on 08/03 and tolder her culture was + for MRSA She was started on bactrim DS Last PM she developed a fever of 101.4 and has felt weak and dizzy all day no n/v no cp or sob no RAMIREZ - History of Current Complaint Chief Complaint: UCSkin Time Seen by Provider: 08/05/19 16:34 Stated Complaint: RT L COMP. Hx Obtained From: Patient Hx Last Menstrual Period: Depo-Provera Onset/Duration: Gradual Onset, Lasting Days, Worse Since - x 12 hours Onset Severity: Mild Current Severity: Moderate Pain Intensity: 6 Pain Scale Used: 0-10 Numeric Location: Discrete Character: Pain, Redness Aggravating Factor(s): Touch Alleviating Factor(s): Nothing Associated Signs & Symptoms: Positive: Fever, Chills, Rash, Tenderness. Negative: Nausea, Vomiting, Numbness, Thirst, Diaphoresis, Weakness, Pallor, Shivering, Difficulty Breathing, Cough, Wheezing, Chest Pain, Hoarseness, Throat Tightening, Abdominal Pain, Lightheadedness, Syncope, Drainage, Bruising , Red Streaks, Joint Swelling - Allergy/Home Medications Allergies/Adverse Reactions: Allergies Allergy/AdvReac Type Severity Reaction Status Date / Time ciprofloxacin [From Cipro] Allergy Intermediate Hives Verified 08/05/19 16:21 morphine AdvReac Intermediate Increases Verified 08/05/19 16:21 B/P Home Medications: Home Medications Mupirocin 2% CREAM* [Bactroban 2% CREAM*] 1 applic TOPICAL TID 08/05/19 [ History Confirmed 08/05/19] Sulfamethox/Trimethoprim DS* [Bactrim DS 800/160 TAB*] 1 tab PO BID 08/05/19 [ History Confirmed 08/05/19] Zonisamide [Zonegran] 100 mg PO BEDTIME 08/05/19 [History Confirmed 08/05/19] PMH/Surg Hx/FS Hx/Imm Hx Previously Healthy: Yes Endocrine History: Diabetes - gestational Neurological History: Other Other Neurological History: CRPS -left leg, ? neuropathy.....Hx Lyme disease - Surgical History Surgical History: Yes Surgery Procedure, Year, and Place: and Tubal Ligation, 2016, [place] ; , 2014, [place]; Laproscopy for Endometriosis, 2008, [place] - Family History Known Family History: Negative: Cardiac Disease, Hypertension - Social History Alcohol Use: None Substance Use Type: None Smoking Status (MU): Former Smoker Type: Cigarettes Amount Used/How Often: 1-2 cigarettes daily Length of Time of Smoking/Using Tobacco: On and Off Since Age 16 Have You Smoked in the Last Year: Yes Review of Systems All Other Systems Reviewed And Are Negative: Yes Constitutional: Positive: Fever, Chills, Fatigue Skin: Positive: Rash Eyes: Positive: Negative ENT: Positive: Negative Respiratory: Positive: Negative Cardiovascular: Positive: Negative Gastrointestinal: Positive: Negative Genitourinary: Positive: Negative Motor: Positive: Negative Neurovascular: Positive: Negative Musculoskeletal: Positive: Negative Neurological: Positive: Negative Psychological: Positive: Negative Physical Exam Triage Information Reviewed: Yes Appearance: Well-Appearing, No Pain Distress, Well-Nourished Vital Signs: Initial Vital Signs Temp 98.7 F 08/05/19 16:17 Pulse 97 08/05/19 16:17 Resp 18 08/05/19 16:17 BP 145/83 08/05/19 16:17 Pulse Ox 100 08/05/19 16:17 Vital Signs Reviewed: Yes Eyes: Positive: Conjunctiva Clear ENT: Positive: Hearing grossly normal, Uvula midline. Negative: Pharyngeal erythema, Nasal congestion, Nasal drainage, Tonsillar swelling, Tonsillar exudate, Dental tenderness, Sinus tenderness Dental Exam: Normal Neck: Positive: Supple, Nontender, No Lymphadenopathy Respiratory: Positive: Lungs clear, Normal breath sounds, No respiratory distress, No accessory muscle use Cardiovascular: Positive: RRR, No Murmur Musculoskeletal: Positive: ROM Intact, No Edema Neurological: Positive: Alert Psychological Exam: Normal Skin Exam: Other - see image Images Feet (Multiple View): 1 - red/no open skin/no flutuance Front/Back of Body, Lg ([place]): 1 - red/warm/tender 2 - red/warm/tender 3 - ecchymosis Course/Dx - Course Course Of Treatment: discussed my concerns with patient I spoke with Kavita Lombardi LINOTYPE MECHANIC at [facility] and she accepted pt Pt desires to drive over - Diagnoses Provider Diagnosis: Cellulitis of right leg Discharge ED - Sign-Out/Discharge Documenting (check all that apply): Patient Departure All imaging exams completed and their final reports reviewed: No Studies - Discharge Plan Condition: Stable Disposition: TRANS HIGHER LVL OF CARE FAC Referrals: Jorge Reina PA [Primary Care Provider] - Additional Instructions: please go to the [facility] for evaluation I spoke to Kavita Lombardi NP and they are expecting you - Billing Disposition and Condition Condition: STABLE Disposition: Trans Higher Lvl of Care Fac
== END 2019-08-05 17:00 | disposition short-term general hospital (02) ==
LOC: UCCORT 16:07
DX: L03.115 Cellulitis of right lower limb (principal); A49.02 Methicillin resistant Staphylococcus aureus infection, unspecified site; Z88.1 Allergy status to other antibiotic agents; Z88.5 Allergy status to narcotic agent; Z87.891 Personal history of nicotine dependence
CPT/HCPCS: 99211; G0463

== ENCOUNTER 2019-09-30 09:21 | Emergency (ER) | payer OTHER ==
--- OUTSIDE RECORDS SUMMARY | 2019-09-30 09:59 | XMS REPORT | Continuity of Care Document ---
:1995 External Reference #:[id number] Author Name Delvsi Walters M.D. (transmitted by agent of provider Nazia Abebe ) Address [address] [place] [id number] Care Team Providers Name Role Phone Jorge Reina PA - Physician Care Team Information Communication Center Operator [phone] Revenue Enforcement Collection Agent Problems Description No Information Available Social History Type Date Description Comments Sex Unknown ETOH Use Rarely consumes alcohol Recreational Drug Use Never Used Drugs Tobacco Use Start: Unknown Patient has never smoked Smoking Status Reviewed: 08/28/19 Patient has never smoked Exercise Type/Frequency Exercises sporadically Allergies, Adverse Reactions, Alerts Active Allergies Reaction Severity Comments Date Cipro rash 06/03/2018 Morphine 06/03/2018 Medications Active Medications SIG [...] intramuscular Unknown 150mg/ml every 3 months Suspension Valacyclovir HCL Jorge Reina, 1gm PA Tablets Mupirocin Jorge Reina, 2% Ointment PA Gabapentin Take 1 Capsule By Unknown 100mg Mouth AT Bedtime For Capsules 3 Days 1 Capsule 2 Times A Day For 3 Daysthen 1 Capsule 3 Times A Day History Medications Butalbital/Acetaminophen/Caffeine Take one tab 30tabs Prateek S. 2018 - 50-325-40mg Tablets po daily, as Alondra, 07/08/2019 needed for M.D. migraines. Zonisamide 25mg take 1 cap po 120caps Prateek S. 2018 - Capsules at hs for 1 [place], 07/13/2019 wk, then 2 M.D. caps po at hs for 1 wk, then 3 caps po at hs for 1 wk, then 4 caps po at hs Butalbital/Acetaminophen/Caffeine Take one tab 30tabs Prateek S. 2018 - 50-325-40mg Tablets po daily, as Alondra, 07/13/2019 needed for M.D. migraines. Topiramate 25mg 1 qhs for 1 120tabs G43 Prateek S. 04/14 - Tablets week then 2 .10 Alondra, 07/07/2019 qhs for 1 9 M.D. week then 3 qhs for 1 week then 4 qhs Rizatriptan Benzoate 1 by mouth as 14tabs G43 Prateek S. 04/14/2019 - 10mg Tablets needed .10 Alondra, 07/15/2019 migraine, march 05 M.D. repeat once, max 2/d, max 2 days/wk Immunizations Description No Information Available Vital Signs Date Vital Result Comment 08/28/2019 11:21am Height 62 inches 5'2" Weight 173.50 lb Heart Rate 72 /min BP Systolic Sitting 110 mmHg BP Diastolic Sitting 70 mmHg Respiratory Rate 14 /min Body Temperature 98.4 F BMI (Body Mass Index) 31.7 kg/m2 07/16/2019 8:59am Height 62 inches 5'2" Weight 180.00 lb Heart Rate 64 /min BP Systolic Sitting 124 mmHg BP Diastolic Sitting 72 mmHg Body Temperature 98.1 F Pain Level 3 O2 % BldC Oximetry 98 % BMI (Body Mass Index) 32.9 kg/m2 Results Description No Information Available Procedures Description No Information Available Medical Devices Description No Information Available Encounters Type Date Location Provider Dx Diagnosis Office Visit 07/16/2019 [facility] Luis Patel, M79.641 Pain in right hand 9:00a at [place] Office Visit 07/08/2019 [facility] Eduard Zuniga NP G62.9 Polyneuropathy, 3:30p [facility] unspecified G43.109 Migraine with aura, not intractable, w/o status migrainosus Office Visit 04/14/2019 [place] Prateek Christy G43.109 Migraine with 9:00a [facility] Dagmar Cantu aura, not [facility] intractable, w/o status migrainosus Assessments Date Code Description Provider 08/28/2019 R21 Rash and other nonspecific skin eruption Delvis Walters M.D. 07/16/2019 M79.641 Pain in right hand Luis Patel MD 07/08/2019 G62.9 Polyneuropathy, unspecified Eduard Zuniga NP 07/08/2019 G43.109 Migraine with aura, not intractable, Eduard Zuniga NP without status migraino 04/14/2019 G43.109 Migraine with aura, not intractable, Prateek Cantu M.D. without status migraino Plan of Treatment Future Appointment(s):10/01/2019 2:00 pm - Eduard Zuniga NP at [place]08/28/2019 - Delvis Walters M.D.R21 Rash and other nonspecific skin eruptionNew Labs:Connective Tissue Panel, Ordered: Syphillis Igg W/Reflex RPR, Ordered: 08/28/19Surgical Pathology, Ordered: 11/15 Functional Status Description No Information Available Mental Status Description No Information Available Referrals Description No Information Available
[2019-09-30 10:12] VITALS: BP 121/69
--- NOTE | 2019-09-30 10:36 | UC ---
Back Pain HPI - HPI Summary HPI Summary: Patient is a 24yo female presenting with R shoulder pain, lower back pain, and L knee pain x2 days after slipping and falling on ice at work. Patient states that she was pushing a laundry cart when she slipped. States that she held onto the cart with her right shoulder which yanked her arm. States that she fell onto her lower back and twisted her left knee on the way down. States that yesterday when she woke up she expected to be sore when about a day normally. States that she woke up today with worsening pain in her arm and back. States that the pain is now no shooting down her R arm and feels tingly. Describes pain as aching and worse with any movement of shoulder. Also feels as though her right hand is weak. Denies decreased ROM. Denies neck pain. Notes numbness and tingling down her legs into feet. Notes dull aching of both sides of her lower back. States she is still able to ambulate but has to walk slowly because it causing increased pain. Describes legs as "tingly, like they' re asleep." Denies incontinence. Describes the pain as sharp anterior pain. Denies any swelling or bruising anywhere. - History of Current Complaint Chief Complaint: UCBackPain Stated Complaint: WC S/P FALL LEFT KNEE RIGHT SHOULDER LOWER BACK Hx Obtained From: Patient Hx Last Menstrual Period: Depo-Provera Severity Initially: Mild Severity Currently: Moderate Pain Intensity: 6 Pain Scale Used: 0-10 Numeric - Allergies/Home Medications Allergies/Adverse Reactions: Allergies Allergy/AdvReac Type Severity Reaction Status Date / Time ciprofloxacin [From Cipro] Allergy Intermediate Hives Verified 09/30/19 10:08 morphine AdvReac Intermediate Increases Verified 09/30/19 10:08 B/P PMH/Surg Hx/FS Hx/Imm Hx Previously Healthy: Yes - Surgical History Surgical History: Yes Surgery Procedure, Year, and Place: and Tubal Ligation, 2016, [place] ; , 2013, ; Laproscopy for Endometriosis, 2008, - Family History Known Family History: Positive: Non-Contributory Negative: Cardiac Disease, Hypertension - Social History Occupation: Employed Full-time Lives: With Family Alcohol Use: None Substance Use Type: None Smoking Status (MU): Former Smoker Type: Cigarettes Amount Used/How Often: 1-2 cigarettes daily Length of Time of Smoking/Using Tobacco: On and Off Since Age 16 Have You Smoked in the Last Year: Yes When Did the Patient Quit Smoking/Using Tobacco: ~07/2019 Review of Systems All Other Systems Reviewed And Are Negative: Yes Constitutional: Positive: Negative Respiratory: Positive: Negative Cardiovascular: Positive: Negative Gastrointestinal: Positive: Negative Motor: Positive: Negative Neurovascular: Positive: Negative Musculoskeletal: Positive: Arthralgia - lumbar back, R shoulder, L knee. Negative: Decreased ROM, Edema Neurological: Positive: Weakness - R hand, Paresthesia - R arm, b/l legs, Numbness - b/l legs Physical Exam Triage Information Reviewed: Yes Appearance: Well-Appearing, No Pain Distress, Well-Nourished Vital Signs: Initial Vital Signs Temp 98.3 F 09/30/19 10:05 Pulse 100 09/30/19 10:05 Resp 18 09/30/19 10:05 BP 121/69 09/30/19 10:05 Pulse Ox 100 09/30/19 10:05 Vital Signs Reviewed: Yes Eyes: Positive: Conjunctiva Clear ENT: Positive: Hearing grossly normal Neck exam: Normal - full ROM, no midline tenderness Neck: Positive: Supple, Nontender, No Lymphadenopathy Respiratory Exam: Normal Respiratory: Positive: Lungs clear, Normal breath sounds, No respiratory distress Cardiovascular Exam: Normal Cardiovascular: Positive: RRR, Pulses Normal - strong radial and pedal pulses b/ l, Brisk Capillary Refill Musculoskeletal: Positive: Strength Intact, ROM Intact, No Edema, Other: - tenderness to palpation of midline lumbar spine and paraspinous muscles. tenderness to palpation of R trapezious muscle. tenderness to palpation of superior patella Neurological Exam: Other - sensation grossly intact Neurological: Positive: Alert, Other: - negative babinski Psychological: Positive: Age Appropriate Behavior Skin Exam: Other - no erythema or ecchymosis noted at injury site. many erythematous lesions noted all over body that patient states are from an allergic reaction recently to unknown cause Diagnostics - Radiology lumbar sacral Radiology Interpretation Completed By: Radiologist Summary of Radiographic Findings: Report: Alignment is anatomic. No cortical disruption or trabecular impaction to indicate a vertebral body fracture. Oblique views without evidence for spondylolysis. Mild vertebral endplate osteophytosis and moderate L4-L5 and moderately severe L5-S1 disc space narrowing. L5-S1 facet joint osteoarthritis. Unremarkable soft tissue contours. Bilateral tubal ligation clips noted. IMPRESSION: #. No radiographic evidence for traumatic lumbar sacral spine injury. #. Degenerative spondylosis and facet joint osteoarthritis. L knee Radiology Interpretation Completed By: Radiologist Summary of Radiographic Findings: IMPRESSION: No fracture of the left knee is noted. R shoulder Radiology Interpretation Completed By: Radiologist Summary of Radiographic Findings: IMPRESSION: No fracture of the right shoulder is noted. Back Pain Course/Dx - Course Course Of Treatment: Discussed negative xrays of shoulder and knee and like muscle spasms in shoulder. Discussed no fx of spine but disc space narrowing of L5-S1. Patient denies trouble using bathroom and negative babinski. Normal gait as well. Instructed patient to continue with symptomatic treatment including use of flexeril. Instructed to follow up with Dr. Weir if pain persists as she may need reimaging. Instructed to go to ED with any new or worsening pain or symptoms. Patient voiced understanding and agreed with treatment plan. - Differential Dx/Diagnosis Differential Diagnosis/HQI/PQRI: Herniated Disc, Strain, Sprain Provider Diagnosis: Narrowing of lumbar intervertebral disc space, Muscle spasm of right shoulder, Left knee pain Discharge ED - Sign-Out/Discharge Documenting (check all that apply): Patient Departure All imaging exams completed and their final reports reviewed: Yes - Discharge Plan Condition: Stable Disposition: HOME Prescriptions: Cyclobenzaprine TAB* [Flexeril 10 MG TAB*] 10 mg PO BID PRN #14 tab PRN Reason: Spasms - Muscle Patient Education Materials: Lumbar Radiculopathy (ED), Knee Pain (ED), Shoulder Pain (ED) Forms: *Work Release Referrals: Jorge Reina PA [Primary Care Provider] - If Needed Mayank Weir MD [Medical Doctor] - If Needed Additional Instructions: As discussed, your xrays showed narrowing of your disc spaces in your lumbar spine. No fractures of your shoulder or knee were noted. Take flexeril as prescribed to help alleviate pain. This may make you drowsy, so do not drive or operate machinery while taking it. Continue to rest, ice/heat, and do minor stretching to help relieve pain. You may also continue to take ibuprofen as directed. Follow-up with your PCP or the referral list below if your pain does not resolve within 7 days. Go to the emergency room with any new or worsening symptoms. - Billing Disposition and Condition Condition: STABLE Disposition: Home - Attestation Statements Provider Attestation: This patient was not seen or examined by me. I was available for consult. Chart reviewed MARSHALL
== END 2019-09-30 11:56 | disposition home or self-care (01) ==
LOC: UCCORT 09:21
DX: M25.562 Pain in left knee (principal); M62.838 Other muscle spasm; M47.897 Other spondylosis, lumbosacral region; M48.061 Spinal stenosis, lumbar region without neurogenic claudication; Z88.1 Allergy status to other antibiotic agents; Z88.5 Allergy status to narcotic agent; Z87.891 Personal history of nicotine dependence
CPT/HCPCS: 72110; 99212; G0463

== ENCOUNTER 2019-11-23 12:09 | Emergency (ER) | payer OTHER ==
[2019-11-23 12:51] VITALS: BP 122/67
--- NOTE | 2019-11-23 13:17 | UC ---
Abdominal Pain Female HPI - HPI Summary HPI Summary: 24-year-old female presents with 2 day history of abdominal pain, nausea, and diarrhea. States this morning she had sudden onset of right upper quadrant pain followed by an episode of diarrhea with a large amount of bright red blood that filled the toilet. Reports history of IBS however states has never had blood in her stool with this. Denies recent antibiotic use. States she was recently evaluated in the emergency room or concerns of possible cauda equina syndrome because she started with some urinary incontinence with low back pain however states she had an MRI which rolled this out. She continues to have some urinary incontinence at this time. Denies fever, chills, vomiting, dysuria , frequency, or urgency. - History of Current Complaint Chief Complaint: UCAbdominalPain Stated Complaint: BOWEL CONCERN Time Seen by Provider: 11/23/19 13:13 Hx Obtained From: Patient Hx Last Menstrual Period: Depo Pain Intensity: 4 Allergies/Adverse Reactions: Allergies Allergy/AdvReac Type Severity Reaction Status Date / Time ciprofloxacin [From Cipro] Allergy Intermediate Hives Verified 11/23/19 12:51 morphine AdvReac Intermediate Increases Verified 11/23/19 12:51 B/P PMH/Surg Hx/FS Hx/Imm Hx GI/ History: Other - Interstitial cystitis, IBS - Surgical History Surgical History: Yes Surgery Procedure, Year, and Place: and Tubal Ligation, 2016, [place] ;. , 2013, [place];. Laproscopy for Endometriosis, 2008, [place]; - Family History Known Family History: Positive: Non-Contributory - Social History Occupation: Employed Full-time Lives: Alone Alcohol Use: None Substance Use Type: None Smoking Status (MU): Former Smoker Type: Cigarettes Amount Used/How Often: 1-2 cigarettes daily Length of Time of Smoking/Using Tobacco: On and Off Since Age 16 Have You Smoked in the Last Year: Yes When Did the Patient Quit Smoking/Using Tobacco: ~07/2019 Review of Systems All Other Systems Reviewed And Are Negative: Yes Constitutional: Negative: Fever, Chills Respiratory: Positive: Negative Cardiovascular: Positive: Negative Gastrointestinal: Positive: Abdominal Pain, Diarrhea, Nausea. Negative: Vomiting Genitourinary: Negative: Dysuria, Hematuria, Frequency, Urgency Musculoskeletal: Positive: Negative Neurological: Positive: Negative Is Patient Immunocompromised?: No Physical Exam - Summary Physical Exam Summary: GENERAL APPEARANCE: Well developed, well nourished, alert and cooperative, and appears to be in no acute distress. CARDIAC: Normal S1 and S2. No S3, S4 or murmurs. Rhythm is regular. There is no peripheral edema, cyanosis or pallor. Extremities are warm and well perfused. Capillary refill is less than 2 seconds. Peripheral pulses intact. LUNGS: Clear to auscultation without rales, rhonchi, wheezing or diminished breath sounds. ABDOMEN: Positive bowel sounds. Soft, nondistended. Mild RUQ tenderness without guarding or rebound. No masses or hepatosplenomegally. No CVA tenderness. MUSKULOSKELETAL: ROM intact to all extremities. No joint erythema or tenderness. Normal muscular development. Normal gait. SKIN: Skin normal color, texture and turgor with no lesions or eruptions. Triage Information Reviewed: Yes Vital Signs: Initial Vital Signs Temp 99 F 11/23/19 12:43 Pulse 99 11/23/19 12:43 Resp 16 11/23/19 12:43 BP 122/67 11/23/19 12:43 Pulse Ox 100 11/23/19 12:43 Vital Signs Reviewed: Yes Abd Pain Female Course/Dx - Course Course Of Treatment: 24-year-old female presents with 2 day history of abdominal pain, nausea, and diarrhea. States this morning she had sudden onset of right upper quadrant pain followed by an episode of diarrhea with a large amount of bright red blood that filled the toilet. Reports history of IBS however states has never had blood in her stool with this. Denies recent antibiotic use. States she was recently evaluated in the emergency room or concerns of possible cauda equina syndrome because she started with some urinary incontinence with low back pain however states she had an MRI which rolled this out. She continues to have some urinary incontinence at this time. Denies fever, chills, vomiting, dysuria , frequency, or urgency. Afebrile. Vital signs stable. On exam patient had a soft, nondistended abdomen with some mild right upper quadrant tenderness without guarding or rebound, no CVA tenderness, otherwise unremarkable exam. Discussed with the patient that based on her history we would be unable to fully evaluate her symptoms therefore recommending that she be evaluated in the emergency room at this time. Patient is agreeable to this and will transport via private vehicle. - Differential Dx/Diagnosis Differential Diagnosis: Constipation, Diverticulitis, Other - colitis Provider Diagnosis: RUQ pain, Blood in stool Discharge ED - Sign-Out/Discharge Documenting (check all that apply): Patient Departure All imaging exams completed and their final reports reviewed: No Studies - Discharge Plan Condition: Stable Disposition: HOME-RECOMMEND TO ED Patient Education Materials: Mel[place] (ED) Referrals: Jorge Reina PA [Primary Care Provider] - Additional Instructions: We are unable to fully assess your symptoms at our facility therefore I am recommending that you go directly to the emergency room from here for further evaluation. Please do not eat or drink anything until you have been evaluated. - Billing Disposition and Condition Condition: STABLE Disposition: Home-Recommend to ED - Attestation Statements Provider Attestation: This patient was not seen by me. I was available for consult. Chart reviewed MARSHALL
== END 2019-11-23 13:24 | disposition home health service (06) ==
LOC: UCCORT 12:09
DX: R10.31 Right lower quadrant pain (principal); K92.1 Melena; R11.0 Nausea; K58.0 Irritable bowel syndrome with diarrhea; Z87.891 Personal history of nicotine dependence; Z88.1 Allergy status to other antibiotic agents; Z88.5 Allergy status to narcotic agent
CPT/HCPCS: 99212; G0463